=== PATIENT | male | born 1970 | race Caucasian/White ===

== ENCOUNTER 2021-03-14 14:13 | Inpatient (IN) | payer OTHER ==
[2021-03-14] MEDS ORDERED: Nitroglycerin 2% Ointment 1 INCH/1 GM Packet ONE (14:53)
[2021-03-14] MEDS ORDERED: Aspirin 325 MG TAB ONE (14:53)
[2021-03-14] MEDS ORDERED: Heparin 5,000 UNITS/ML VIAL ONE (15:02)
[2021-03-14] MEDS ORDERED: Metoprolol Tartrate 5 MG/5 ML VIAL ONE (15:02)
[2021-03-14] MEDS ORDERED: Atropine Sulfate 0.4 mg/1 ml Vial ONE (15:16)
[2021-03-14 15:19] LABS: ALT (SGPT) 38 U/L (8-55); AST (SGOT) 15 U/L (5-34); Alkaline Phosphatase 125 U/L (40-110); Anion Gap 14 mmol/L (10-20); BUN (Urea Nitrogen) 11 mg/dL (8.4-25.7); Bilirubin, Total 0.5 mg/dL (0.2-1.2); Calc. Creatinine Clearance 0 mL/min (70-130); Calcium 8.4 mg/dL (7.8-10.44); Carbon Dioxide 23 mmol/L (22-29); Chloride 105 mmol/L (98-107); Globulin 2.2 g/dL (2.4-3.5); Glucose 323 mg/dL (70-105); Potassium 3.5 mmol/L (3.5-5.1); Protein, Total 6.2 g/dL (6.0-8.3); Sodium 138 mmol/L (136-145)
[2021-03-14 15:43] LABS: Mean Corpuscular HGB CONC 34.1 g/dL (32.0-36.0); Mean Corpuscular Hemoglobin 35.4 pg (27.0-33.0); Mean Corpuscular Volume 103.8 fl (81.2-95.1); Mean Platelet Volume 9.1 fl (7.4-10.4); Platelet Count 343 10x3/uL (150-450); Red Blood Cell (RBC) Count 4.24 10x6/uL (4.32-5.72); White Blood Cell (WBC) Count 49.9 10x3/uL (3.5-10.5)
[2021-03-14 16:17] LABS: MDiff Complete? YES; Manual Diff?? YES
[2021-03-14 16:41] LABS: Band 8 % (5-11); Lymphocytes 10 % (21-51); Metamyelocyte 1 % (0-0); Monocytes 6 % (0-10); Neutrophil 75 % (42-75); Nucleated RBC 2 % (0)
[2021-03-14 16:43] LABS: Dohle Bodies SLIGHT; Toxic Granulation MODERATE
[2021-03-14 16:44] LABS: Basophilic Stippling SLIGHT = 1-2 cells (100X) (None Seen); Platelet Morphology Comment Appears Adequate; Polychromasia SLIGHT = 2-3 cells (100X) (0-2/hpf)
[2021-03-14 17:14] LABS: SARS-CoV-2 NAA Rapid Test Not Detected (NotDetected)
[2021-03-14] MEDS ORDERED: Ondansetron PF 4 MG/2 ML Vial IVP PRN (17:36)
[2021-03-14] MEDS ORDERED: Acetaminophen 325 MG TAB PO PRN (17:36)
[2021-03-14] MEDS ORDERED: Dextrose 50% Abboject 50 ML SYRINGE SLOW IVP PRN (17:58)
[2021-03-14] MEDS ORDERED: Dextrose 5% in Water 1,000 ML IV PRN (17:58)
[2021-03-14] MEDS ORDERED: Enoxaparin Sodium 40 MG/0.4 ML SYRINGE SC SCH (18:00)
[2021-03-14] MEDS: Sodium Chloride 0.9% 1,000 ML IV SCH (18:12)
[2021-03-14 19:17] LABS: Bilirubin Neg (Negative); Blood, Urine 25 (Negative); Clarity Clear (Clear); Glucose, Urine (Dipstick) >=1000 mg/dL (Negative); Ketone, Urine 5 mg/dL (Negative); Leukocyte Negative (Negative); Nitrite Negative (Negative); Protein, Urine (Dipstick) Negative (Neg-Trace); Urobilinogen Normal mg/dL (Less than 2); pH, Urine 6.5 (5.0-9.0)
[2021-03-14 19:57] LABS: Urine Culture Reflex No No
[2021-03-14 20:00] LABS: Bacteria/HPF None Seen HPF (None Seen); RBC/HPF None Seen HPF (0-3); Squamous Epithelial None Seen HPF (0-3); WBC/HPF None Seen HPF (0-3)
[2021-03-14] MEDS ORDERED: Amlodipine 10 MG TAB PO SCH (20:00)
[2021-03-14] MEDS: Empagliflozin 25 MG TAB PO SCH (20:20)
[2021-03-14] MEDS: Famciclovir 500 MG TAB PO SCH (20:22)
[2021-03-14] MEDS: Metoprolol Tartrate 25 MG TAB PO SCH (20:23)
[2021-03-14] MEDS: Rosuvastatin 10 MG TAB PO SCH (20:23)
[2021-03-14] MEDS ORDERED: Melatonin 3 MG TAB PO SCH (21:15)
[2021-03-14] MEDS: HumaLOG 300 UNITS/3 ML VIAL SC PRN (21:53)
[2021-03-15] MEDS: Sodium Chloride 0.9% 1,000 ML IV SCH ×3 (01:17→21:24)
[2021-03-15 04:19] LABS: Hemoglobin 13.1 g/dL (13.5-17.5); Mean Corpuscular Hemoglobin 35.3 pg (27.0-33.0); Mean Platelet Volume 8.8 fl (7.4-10.4); Platelet Count 290 10x3/uL (150-450); RBC Distribution Width 14.9 % (11.5-14.5); Red Blood Cell (RBC) Count 3.71 10x6/uL (4.32-5.72); White Blood Cell (WBC) Count 35.1 10x3/uL (3.5-10.5)
[2021-03-15 04:25] LABS: ALT (SGPT) 30 U/L (8-55); AST (SGOT) 13 U/L (5-34); Albumin 3.7 g/dL (3.5-5.0); Alkaline Phosphatase 115 U/L (40-110); Anion Gap 12 mmol/L (10-20); BUN (Urea Nitrogen) 12 mg/dL (8.4-25.7); Bilirubin, Total 0.6 mg/dL (0.2-1.2); Calc. Creatinine Clearance 245 mL/min (70-130); Calcium 8.5 mg/dL (7.8-10.44); Carbon Dioxide 25 mmol/L (22-29); Chloride 104 mmol/L (98-107); Globulin 2.5 g/dL (2.4-3.5); Glucose 144 mg/dL (70-105); Potassium 3.6 mmol/L (3.5-5.1); Protein, Total 6.2 g/dL (6.0-8.3); Sodium 137 mmol/L (136-145)
[2021-03-15 05:24] LABS: Band 21 % (5-11); Lymphocytes 12 % (21-51); Monocytes 7 % (0-10); Myelocyte 5 % (0-0); Nucleated RBC 1 % (0); Reactive Lymphocytes 1 % (0-10)
[2021-03-15 05:26] LABS: Neutrophil 51 % (42-75)
[2021-03-15 05:27] LABS: Metamyelocyte 3 % (0-0)
[2021-03-15 05:28] LABS: Anisocytosis SLIGHT = 6-15 cells (100X) (0-5/hpf); Macrocytosis MODERATE=16-30 cells (100X) (0-5/hpf); Polychromasia SLIGHT = 2-3 cells (100X) (0-2/hpf)
[2021-03-15 05:29] LABS: Platelet Morphology Comment Appears Adequate; Toxic Granulation MODERATE
[2021-03-15 05:30] LABS: MDiff Complete? YES
[2021-03-15 05:56] VITALS: BMI 34.4
[2021-03-15] MEDS: HumaLOG 300 UNITS/3 ML VIAL SC PRN ×3 (06:32→21:21)
[2021-03-15] MEDS: Amlodipine 10 MG TAB PO SCH (08:27)
[2021-03-15] MEDS: Famciclovir 500 MG TAB PO SCH ×3 (08:27→21:19)
[2021-03-15] MEDS: Enoxaparin Sodium 40 MG/0.4 ML SYRINGE SC SCH (08:27)
[2021-03-15] MEDS: Tamsulosin HCl 0.4 MG CAP PO SCH (08:27)
[2021-03-15] MEDS: Aspirin Chewable 81 MG TAB PO SCH ×3 (08:27→08:28)
[2021-03-15] MEDS: Valsartan 80 MG TAB PO SCH (08:27)
[2021-03-15] MEDS: Metoprolol Tartrate 25 MG TAB PO SCH (08:28)
[2021-03-15] MEDS: pyridOXINE 50 MG (B6) TAB PO SCH (08:28)
[2021-03-15 12:16] LABS: Hemoglobin A1c 10.7 % (4.0-6.0)
[2021-03-15] MEDS ORDERED: Fluconazole 100 MG TAB PO SCH (18:00)
[2021-03-15 19:58] LABS: CKMB 0.9 ng/mL (0-6.6)
[2021-03-15] MEDS: Colchicine 0.6 MG TAB PO SCH (21:19)
[2021-03-15] MEDS: Carvedilol 3.125 MG TAB PO SCH (21:19)
[2021-03-15] MEDS: Empagliflozin 25 MG TAB PO SCH (21:19)
[2021-03-15] MEDS: Rosuvastatin 10 MG TAB PO SCH (21:19)
[2021-03-16 04:08] LABS: Hemoglobin 13.9 g/dL (13.5-17.5); Mean Corpuscular HGB CONC 33.4 g/dL (32.0-36.0); Mean Corpuscular Volume 104.8 fl (81.2-95.1); Mean Platelet Volume 9.1 fl (7.4-10.4); Platelet Count 271 10x3/uL (150-450); RBC Distribution Width 14.5 % (11.5-14.5); Red Blood Cell (RBC) Count 3.97 10x6/uL (4.32-5.72); White Blood Cell (WBC) Count 32.2 10x3/uL (3.5-10.5)
[2021-03-16 04:25] LABS: Anion Gap 13 mmol/L (10-20); BUN (Urea Nitrogen) 12 mg/dL (8.4-25.7); CRP (Inflammatory) 7.46 mg/dL (= or < 0.5); Calc. Creatinine Clearance 256 mL/min (70-130); Calcium 8.6 mg/dL (7.8-10.44); Carbon Dioxide 23 mmol/L (22-29); Chloride 106 mmol/L (98-107); Glucose 160 mg/dL (70-105); Potassium 3.9 mmol/L (3.5-5.1); Sodium 138 mmol/L (136-145)
[2021-03-16 04:48] LABS: Band 20 % (5-11); Lymphocytes 7 % (21-51); Monocytes 7 % (0-10); Nucleated RBC 1 % (0); Reactive Lymphocytes 3 % (0-10)
[2021-03-16 04:49] LABS: Anisocytosis SLIGHT = 6-15 cells (100X) (0-5/hpf); Macrocytosis SLIGHT = 6-15 cells (100X) (0-5/hpf); Neutrophil 62 % (42-75); Polychromasia SLIGHT = 2-3 cells (100X) (0-2/hpf)
[2021-03-16 04:50] LABS: Platelet Morphology Comment Appears Adequate; Toxic Granulation MODERATE
[2021-03-16 04:51] LABS: MDiff Complete? YES
[2021-03-16] MEDS: Tamsulosin HCl 0.4 MG CAP PO SCH (08:29)
[2021-03-16] MEDS: Valsartan 80 MG TAB PO SCH (08:29)
[2021-03-16] MEDS: Amlodipine 10 MG TAB PO SCH (08:33)
[2021-03-16] MEDS: Colchicine 0.6 MG TAB PO SCH (08:34)
[2021-03-16] MEDS: pyridOXINE 50 MG (B6) TAB PO SCH (08:34)
[2021-03-16] MEDS: Aspirin Chewable 81 MG TAB PO SCH (08:35)
[2021-03-16] MEDS: Carvedilol 3.125 MG TAB PO SCH (08:35)
[2021-03-16] MEDS: Enoxaparin Sodium 40 MG/0.4 ML SYRINGE SC SCH (08:35)
[2021-03-16] MEDS: Famciclovir 500 MG TAB PO SCH (08:36)
[2021-03-16 12:30] VITALS: BP 129/79; TEMP 96.3
[2021-03-17] MEDS ORDERED: FLU VACC QS2021-22(6MOS UP)/PF 60 MCG/0.5 ML SYRINGE IM ONE (18:45)
[2021-03-17] MEDS ORDERED: Prevnar 13-Val Conj/PF 0.5 ML SYRINGE IM ONE (18:45)
== END 2021-03-16 12:20 | disposition home or self-care (01) | DRG 287 ==
LOC: CSHERS 14:13 → CSHICU 16:29 → CSHTELE 03-15 14:55
PROVIDERS: ADMIT Internal Medicine; ATTEND Hospitalist
PROC: 4A023N7 Measurement of Cardiac Sampling and Pressure, Left Heart, Percutaneous Approach (ICD-10-PCS; principal; 2021-03-14)
PROC: B2111ZZ Fluoroscopy of Multiple Coronary Arteries using Low Osmolar Contrast (ICD-10-PCS; 2021-03-14)
PROC: B2151ZZ Fluoroscopy of Left Heart using Low Osmolar Contrast (ICD-10-PCS; 2021-03-14)
DX: I31.9 Disease of pericardium, unspecified (principal); K52.1 Toxic gastroenteritis and colitis; C79.51 Secondary malignant neoplasm of bone; E78.5 Hyperlipidemia, unspecified; I10 Essential (primary) hypertension; K21.9 Gastro-esophageal reflux disease without esophagitis; D72.823 Leukemoid reaction; E11.65 Type 2 diabetes mellitus with hyperglycemia; C61 Malignant neoplasm of prostate; D72.829 Elevated white blood cell count, unspecified; E11.42 Type 2 diabetes mellitus with diabetic polyneuropathy; Z87.891 Personal history of nicotine dependence; T45.1X5D Adverse effect of antineoplastic and immunosuppressive drugs, subsequent encounter; Z79.82 Long term (current) use of aspirin; Z79.899 Other long term (current) drug therapy; Z20.822 Contact with and (suspected) exposure to COVID-19
CPT/HCPCS: 0240U; 36415; 36416; 71045; 80048; 80053; 81001; 82553; 83036; 83880; 84145; 84484; 85025; 85379; 86140; 87040; 93005; 93010; 93306; 93458; 96374; 96375; 99152; C1760; C1776; J0461; J1644; J1650; J1815; J7050

== ENCOUNTER 2021-05-23 23:28 | Inpatient (IN) | payer BC ==
[2021-05-23] MEDS ORDERED: methylPREDNISolone Sod Succ/PF 125 MG/2 ML VIAL ONE (23:59)
[2021-05-24] MEDS ORDERED: diphenhydrAMINE 50 MG/ML VIAL ONE
[2021-05-24] MEDS ORDERED: EPINEPHrine 1 MG/ML AMP ONE (00:03)
[2021-05-24] MEDS ORDERED: Famotidine/PF 20 mg/2ml Vial ONE (00:16)
[2021-05-24 00:38] LABS: ALT (SGPT) 429 U/L (8-55); AST (SGOT) 123 U/L (5-34); Albumin 3.8 g/dL (3.5-5.0); Alkaline Phosphatase 121 U/L (40-110); Anion Gap 19 mmol/L (10-20); BUN (Urea Nitrogen) 31 mg/dL (8.4-25.7); Calc. Creatinine Clearance 0 mL/min (70-130); Calcium 8.7 mg/dL (7.8-10.44); Carbon Dioxide 17 mmol/L (22-29); Chloride 99 mmol/L (98-107); Glucose 236 mg/dL (70-105); Potassium 3.6 mmol/L (3.5-5.1); Protein, Total 6.8 g/dL (6.0-8.3); Sodium 131 mmol/L (136-145)
[2021-05-24 00:46] LABS: #Basophils 0.1 10x3/uL (0.0-0.2); #Eosinphils 0.2 10x3/uL (0.0-0.5); #Monocytes 0.7 10x3/uL (0.0-1.1); #Neutrophils 7.8 10x3/uL (1.5-8.4); %Basophils 0.6 % (0.0-2.0); %Eosinophils 1.3 % (0.0-6.0); %Lymphocytes 24.8 % (18.0-47.0); %Monocytes 6.1 % (0.0-10.0); %Neutrophils 65.2 % (40.0-75.0); Hemoglobin 18.2 g/dL (13.5-17.5); Mean Corpuscular HGB CONC 35.1 g/dL (32.0-36.0); Mean Corpuscular Hemoglobin 33.9 pg (27.0-33.0); Mean Corpuscular Volume 96.6 fl (81.2-95.1); Mean Platelet Volume 9.4 fl (7.4-10.4); Platelet Count 348 10x3/uL (150-450); RBC Distribution Width 12.9 % (11.5-14.5); Red Blood Cell (RBC) Count 5.37 10x6/uL (4.32-5.72); White Blood Cell (WBC) Count 11.9 10x3/uL (3.5-10.5)
[2021-05-24] MEDS ORDERED: Cefepime 2 GM VIAL ONE (01:05)
[2021-05-24 01:11] LABS: SARS-CoV-2 NAA Rapid Test Not Detected (NotDetected)
[2021-05-24] MEDS ORDERED: diphenhydrAMINE 50 MG/ML VIAL IVP PRN (02:05)
[2021-05-24] MEDS ORDERED: Dextrose 5% in Water 1,000 ML IV PRN (02:10)
[2021-05-24] MEDS ORDERED: Dextrose 50% Abboject 50 ML SYRINGE SLOW IVP PRN (02:10)
[2021-05-24] MEDS ORDERED: Acetaminophen 325 MG TAB PO PRN (02:11)
[2021-05-24] MEDS ORDERED: Calcium Carbonate 500 MG ChewTAB PO PRN (02:11)
[2021-05-24] MEDS ORDERED: Senokot S 8.6-50 MG TAB PO PRN (02:11)
[2021-05-24] MEDS ORDERED: Ondansetron ODT 4 MG TAB PO PRN (02:11)
[2021-05-24] MEDS ORDERED: Ondansetron PF 4 MG/2 ML Vial IVP PRN (02:11)
[2021-05-24] MEDS ORDERED: HYDROcodone/Acetaminophen 7.5/325 mg Tablet PO PRN ×2 (02:26→03:34)
[2021-05-24 02:37] VITALS: BMI 32.2
[2021-05-24] MEDS: NS 0.9% w/ 20 MEQ KCL 1,000 ML/1,000 ML BAG IV SCH ×4 (02:45→22:57)
[2021-05-24 02:51] LABS: Magnesium 2.1 mg/dL (1.6-2.6)
[2021-05-24] MEDS ORDERED: VANCOMYCIN 2 GRAM/400 ML BAG 2 GM in Premix Bag 1 BAG IVPB SCH (04:00)
[2021-05-24] MEDS: methylPREDNISolone Sod Succ 40 MG VIAL IVP SCH ×4 (06:10→23:18)
[2021-05-24] MEDS: HumaLOG 300 UNITS/3 ML VIAL SC PRN ×4 (06:12→21:17)
[2021-05-24] MEDS ORDERED: HYDROCHLOROTHIAZIDE PO SCH (09:00)
[2021-05-24] MEDS ORDERED: [UNRECOGNIZED DRUG - OTHER] PO SCH (09:00)
[2021-05-24] MEDS ORDERED: VALSARTAN PO SCH (09:00)
[2021-05-24] MEDS: Carvedilol 3.125 MG TAB PO SCH ×2 (09:02→17:15)
[2021-05-24] MEDS: Aspirin 81 mg Enteric Coated Tablet PO SCH (09:02)
[2021-05-24] MEDS: metFORMIN XR 500 MG TAB PO SCH (09:02)
[2021-05-24] MEDS: Famotidine/PF 20 mg/2ml Vial SLOW IVP SCH ×2 (09:03→21:10)
[2021-05-24] MEDS: Potassium Chloride 20 MEQ TAB PO SCH (09:03)
[2021-05-24] MEDS: Cefepime 2 GM in Sodium Chloride 0.9% 100 ML IVPB SCH ×2 (09:03→17:15)
[2021-05-24] MEDS: Enoxaparin Sodium 40 MG/0.4 ML SYRINGE SC SCH (09:03)
[2021-05-24] MEDS: Tamsulosin HCl 0.4 MG CAP PO SCH (09:04)
[2021-05-24] MEDS: VANCOMYCIN 2 GRAM/400 ML BAG 2 GM in Premix Bag 1 BAG IVPB SCH (15:20)
[2021-05-24] MEDS: Empagliflozin 25 MG TAB PO SCH (21:10)
[2021-05-24] MEDS: Rosuvastatin 10 MG TAB PO SCH (21:10)
[2021-05-24] MEDS ORDERED: Loperamide HCl 1 MG/7.5 ML UDCUP PO SCH (23:00)
[2021-05-25] MEDS: Cefepime 2 GM in Sodium Chloride 0.9% 100 ML IVPB SCH ×3 (00:46→16:08)
[2021-05-25] MEDS: VANCOMYCIN 2 GRAM/400 ML BAG 2 GM in Premix Bag 1 BAG IVPB SCH (03:22)
[2021-05-25 05:27] LABS: #Basophils 0.1 10x3/uL (0.0-0.2); #Monocytes 1.1 10x3/uL (0.0-1.1); #Neutrophils 13.8 10x3/uL (1.5-8.4); %Basophils 0.3 % (0.0-2.0); %Eosinophils 0.1 % (0.0-6.0); %Lymphocytes 12.5 % (18.0-47.0); %Monocytes 6.4 % (0.0-10.0); %Neutrophils 78.5 % (40.0-75.0); Hemoglobin 13.3 g/dL (13.5-17.5); Mean Corpuscular Hemoglobin 33.6 pg (27.0-33.0); Mean Corpuscular Volume 98.7 fl (81.2-95.1); Mean Platelet Volume 9.1 fl (7.4-10.4); Platelet Count 294 10x3/uL (150-450); RBC Distribution Width 12.9 % (11.5-14.5); Red Blood Cell (RBC) Count 3.96 10x6/uL (4.32-5.72); White Blood Cell (WBC) Count 17.5 10x3/uL (3.5-10.5)
[2021-05-25 05:30] LABS: Anion Gap 17 mmol/L (10-20); BUN (Urea Nitrogen) 22 mg/dL (8.4-25.7); Calc. Creatinine Clearance 212 mL/min (70-130); Carbon Dioxide 12 mmol/L (22-29); Chloride 113 mmol/L (98-107); Glucose 211 mg/dL (70-105); Potassium 4.1 mmol/L (3.5-5.1); Sodium 138 mmol/L (136-145)
[2021-05-25] MEDS: methylPREDNISolone Sod Succ 40 MG VIAL IVP SCH (05:30)
[2021-05-25] MEDS: HumaLOG 300 UNITS/3 ML VIAL SC PRN ×4 (05:32→20:30)
[2021-05-25 08:17] LABS: Hemoglobin 13.2 g/dL (13.5-17.5); Platelet Count 285 10x3/uL (150-450)
[2021-05-25] MEDS: Enoxaparin Sodium 40 MG/0.4 ML SYRINGE SC SCH (09:12)
[2021-05-25] MEDS: Cyclobenzaprine 10 MG TAB PO PRN (09:13)
[2021-05-25] MEDS: Aspirin 81 mg Enteric Coated Tablet PO SCH (09:13)
[2021-05-25] MEDS: Tamsulosin HCl 0.4 MG CAP PO SCH (09:13)
[2021-05-25] MEDS: Carvedilol 3.125 MG TAB PO SCH ×2 (09:13→16:08)
[2021-05-25] MEDS: metFORMIN XR 500 MG TAB PO SCH (09:14)
[2021-05-25] MEDS: Potassium Chloride 20 MEQ TAB PO SCH (09:29)
[2021-05-25] MEDS: Famotidine/PF 20 mg/2ml Vial SLOW IVP SCH (09:53)
[2021-05-25 14:21] LABS: Vancomycin, Trough 9.6 ug/mL
[2021-05-25] MEDS: VANCOMYCIN 1.75 GM/350 ML BAG 1.75 GM in Premix Bag 1 BAG IVPB SCH ×2 (16:12→23:22)
[2021-05-25] MEDS: Empagliflozin 25 MG TAB PO SCH (20:26)
[2021-05-25] MEDS: Rosuvastatin 10 MG TAB PO SCH (20:26)
[2021-05-26] MEDS: Cefepime 2 GM in Sodium Chloride 0.9% 100 ML IVPB SCH ×2 (01:30→08:17)
[2021-05-26 04:21] LABS: #Basophils 0.1 10x3/uL (0.0-0.2); #Monocytes 1.2 10x3/uL (0.0-1.1); #Neutrophils 10.7 10x3/uL (1.5-8.4); %Basophils 0.3 % (0.0-2.0); %Eosinophils 0.1 % (0.0-6.0); %Lymphocytes 17.4 % (18.0-47.0); %Monocytes 7.9 % (0.0-10.0); %Neutrophils 72.4 % (40.0-75.0); Hemoglobin 12.5 g/dL (13.5-17.5); Mean Corpuscular HGB CONC 33.9 g/dL (32.0-36.0); Mean Corpuscular Hemoglobin 33.4 pg (27.0-33.0); Mean Corpuscular Volume 98.7 fl (81.2-95.1); Mean Platelet Volume 9.3 fl (7.4-10.4); Platelet Count 320 10x3/uL (150-450); RBC Distribution Width 12.9 % (11.5-14.5); Red Blood Cell (RBC) Count 3.74 10x6/uL (4.32-5.72); White Blood Cell (WBC) Count 14.9 10x3/uL (3.5-10.5)
[2021-05-26 04:54] LABS: Anion Gap 14 mmol/L (10-20); BUN (Urea Nitrogen) 23 mg/dL (8.4-25.7); Calc. Creatinine Clearance 221 mL/min (70-130); Calcium 8.1 mg/dL (7.8-10.44); Carbon Dioxide 17 mmol/L (22-29); Chloride 109 mmol/L (98-107); Glucose 203 mg/dL (70-105); Potassium 3.7 mmol/L (3.5-5.1); Sodium 136 mmol/L (136-145)
[2021-05-26] MEDS: HumaLOG 300 UNITS/3 ML VIAL SC PRN (05:23)
[2021-05-26 07:11] VITALS: BP 107/69; TEMP 97.2
[2021-05-26] MEDS: VANCOMYCIN 1.75 GM/350 ML BAG 1.75 GM in Premix Bag 1 BAG IVPB SCH (08:18)
[2021-05-26] MEDS: Enoxaparin Sodium 40 MG/0.4 ML SYRINGE SC SCH (08:18)
[2021-05-26] MEDS: Aspirin 81 mg Enteric Coated Tablet PO SCH (08:18)
[2021-05-26] MEDS: metFORMIN XR 500 MG TAB PO SCH (08:18)
[2021-05-26] MEDS: Cyclobenzaprine 10 MG TAB PO PRN (08:18)
[2021-05-26] MEDS: Potassium Chloride 20 MEQ TAB PO SCH (08:19)
[2021-05-26] MEDS: Tamsulosin HCl 0.4 MG CAP PO SCH (08:19)
[2021-05-26] MEDS: Carvedilol 3.125 MG TAB PO SCH (08:19)
[2021-06-01 13:37] LABS: Routine O & P Final report (.)
== END 2021-05-26 10:58 | disposition home or self-care (01) | DRG 871 ==
LOC: CSHERS 23:28 → CSHTELE 05-24 02:26
PROVIDERS: ADMIT Family Medicine; ATTEND Family Medicine
DX: A41.9 Sepsis, unspecified organism (principal); R57.8 Other shock; C79.82 Secondary malignant neoplasm of genital organs; C79.51 Secondary malignant neoplasm of bone; Z20.822 Contact with and (suspected) exposure to COVID-19; E11.9 Type 2 diabetes mellitus without complications; I10 Essential (primary) hypertension; F17.210 Nicotine dependence, cigarettes, uncomplicated; E78.5 Hyperlipidemia, unspecified; L27.0 Generalized skin eruption due to drugs and medicaments taken internally; K21.9 Gastro-esophageal reflux disease without esophagitis; C61 Malignant neoplasm of prostate; R74.8 Abnormal levels of other serum enzymes
CPT/HCPCS: 36415; 36416; 71045; 80048; 80053; 80202; 83605; 83630; 83735; 85025; 87040; 87081; 87177; 87324; 87430; 87449; 87804; 93005; 96372; 96374; 96375; J0171; J0692; J1200; J1650; J1815; J2920; J2930; J3370; J3480; J3490; S0028; U0002

== ENCOUNTER 2022-06-13 16:14 | Emergency (ER) | payer BC ==
[2022-06-13 17:34] LABS: Hemoglobin 12.9 g/dL (13.5-17.5); Mean Corpuscular HGB CONC 34.5 g/dL (32.0-36.0); Mean Corpuscular Hemoglobin 32.5 pg (27.0-33.0); Mean Corpuscular Volume 94.2 fl (81.2-95.1); Mean Platelet Volume 9.5 fl (7.4-10.4); Platelet Count 179 10x3/uL (150-450); RBC Distribution Width 17.9 % (11.5-14.5); Red Blood Cell (RBC) Count 3.97 10x6/uL (4.32-5.72); White Blood Cell (WBC) Count 32.7 10x3/uL (3.5-10.5)
[2022-06-13 17:35] LABS: MDiff Complete? YES
[2022-06-13 17:37] LABS: INR-International Normal Ratio 0.9; PTT 23.1 sec (22.0-33.0); Prothrombin Time 10.3 sec (9.5-12.1)
[2022-06-13 17:40] LABS: ALT (SGPT) 27 U/L (8-55); AST (SGOT) 13 U/L (5-34); Albumin 4.1 g/dL (3.5-5.0); Alkaline Phosphatase 461 U/L (40-110); Anion Gap 19 mmol/L (10-20); BUN (Urea Nitrogen) 42 mg/dL (8.4-25.7); Bilirubin, Total 0.6 mg/dL (0.2-1.2); Calc. Creatinine Clearance 0 mL/min (70-130); Carbon Dioxide 22 mmol/L (22-29); Chloride 94 mmol/L (98-107); Estimated GFR 107; Globulin 2.1 g/dL (2.4-3.5); Glucose 365 mg/dL (70-105); Protein, Total 6.2 g/dL (6.0-8.3); Sodium 131 mmol/L (136-145)
[2022-06-13 17:42] LABS: Calcium 6.9 mg/dL (7.8-10.44)
[2022-06-13 17:52] LABS: Band 12 % (5-11); Lymphocytes 9 % (21-51); Metamyelocyte 2 % (0-0); Monocytes 4 % (0-10); Myelocyte 3 % (0-0); Neutrophil 70 % (42-75); Nucleated RBC 2 % (0)
[2022-06-13 17:54] LABS: Basophilic Stippling SLIGHT = 1-2 cells (100X) (None Seen); Platelet Clumps SLIGHT; Platelet Morphology Comment PLT clumps seen-ADEQ; RBC Morphology Normal
[2022-06-13] MEDS ORDERED: Vancomycin 1 GM VIAL ONE (18:33)
[2022-06-13] MEDS ORDERED: Piperacillin/Tazobactam 4.5 GM VIAL ONE (18:33)
== END 2022-06-13 21:53 ==
LOC: CSHERS 16:14
DX: L08.9 Local infection of the skin and subcutaneous tissue, unspecified (principal); D72.829 Elevated white blood cell count, unspecified; E78.5 Hyperlipidemia, unspecified; E11.9 Type 2 diabetes mellitus without complications; I10 Essential (primary) hypertension; Z87.891 Personal history of nicotine dependence; Z79.84 Long term (current) use of oral hypoglycemic drugs; Z79.82 Long term (current) use of aspirin
CPT/HCPCS: 36415; 71275; 80053; 83605; 84484; 85025; 85610; 85730; 87040; 93970; 96365; 96366; 96367; J2543; J3370

== ENCOUNTER 2022-07-21 16:33 | Emergency (ER) | payer BC | END 2022-07-21 18:22 | disposition home or self-care (01) | LOC: CSHERS 16:33 | DX: H66.93 Otitis media, unspecified, bilateral (principal); E78.5 Hyperlipidemia, unspecified; E11.9 Type 2 diabetes mellitus without complications; I10 Essential (primary) hypertension; K21.9 Gastro-esophageal reflux disease without esophagitis; Z87.891 Personal history of nicotine dependence; Z79.899 Other long term (current) drug therapy; Z79.82 Long term (current) use of aspirin | CPT/HCPCS: 99282 ==